=== PATIENT | female | born 1995 ===

== ENCOUNTER 2021-04-09 14:24 | Inpatient (IN) | payer BC ==
[2021-04-09 16:29] LABS: BLOOD UREA NITROGEN,BUN 10 mg/dL (7.0-18.0); CARBON DIOXIDE,CO2 20.2 mmol/L (21.0-32.0); CHLORIDE,CL 106 mmol/L (98-107); GLUCOSE RANDOM 68 mg/dL (74-106); POTASSIUM,K 3.6 mmol/L (3.5-5.1); SODIUM,NA 137 mmol/L (136-145)
[2021-04-09] MEDS ORDERED: Tranexamic Acid 1,000 MG in Sodium Chloride 0.9% 100 ML IV PRN (17:49)
[2021-04-09] MEDS ORDERED: Lidocaine 1% 50 ML MDV INJECT PRN (17:49)
[2021-04-09] MEDS ORDERED: Carboprost Tromethamine 250 MCG/1 ML Amp IM PRN (17:49)
[2021-04-09] MEDS ORDERED: Methylergonovine 0.2 MG/1 ML Amp IM PRN (17:49)
[2021-04-09] MEDS ORDERED: Sodium Chloride 0.9% 2.5 ML Syringe FLUSH PRN (17:49)
[2021-04-09] MEDS ORDERED: Water For Irrigation,Sterile 1,000 ML Container IRR PRN (17:49)
[2021-04-09] MEDS ORDERED: Sodium Chloride 0.9% 10 ML Syringe FLUSH PRN (17:49)
[2021-04-09] MEDS ORDERED: Nalbuphine 10 MG/1 ML Vial IVPUSH PRN (17:49)
[2021-04-09] MEDS ORDERED: Sodium Chloride 0.9% 10 ML SDV IV PRN (17:49)
[2021-04-09] MEDS ORDERED: Misoprostol 200 MCG Tab PO PRN (17:49)
[2021-04-09] MEDS ORDERED: Oxytocin/0.9 % Sodium Chloride 30 UNIT/500 ML BAG IV SCH ×2 (18:00→19:15)
--- NOTE | 2021-04-09 19:10 | PCM.LDHP ---
L&D History of Present Illness - General Date of Service: 04/09/21 Admit Problem/Dx: Patient Status Order with Admit Dx/Problem 04/09/21 14:55 Patient Status [ADT] Routine 04/09/21 17:50 Patient Status [ADT] Routine Admission Diagnosis/Problem Admission Diagnosis/Problem Source of Information: Patient History Limitations: Reports: No Limitations - History of Present Illness Improves with: Reports: None Worsens with: Reports: None Associated Symptoms: Reports: N - Related Data Allergies/Adverse Reactions: Allergies Allergy/AdvReac Type Severity Reaction Status Date / Time No Known Allergies Allergy Verified 03/29/21 10:25 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: Neurological History: Reports: Migraines Psychiatric History: Reports: Anxiety Endocrine/Metabolic History: Reports: Diabetes, Gestational - Past Surgical History Endocrine Surgical History: Reports: None Neurological Surgical History: Reports: None Social & Family History - Family History Family Medical History: No Pertinent Family History - Tobacco Use Tobacco Use Status *Q: Never Tobacco User Second Hand Smoke Exposure: No - Recreational Drug Use Recreational Drug Use: No H&P Review of Systems - Review of Systems: Review Of Systems: See Below General: Reports: No Symptoms HEENT: Reports: No Symptoms Pulmonary: Reports: No Symptoms Cardiovascular: Reports: No Symptoms Gastrointestinal: Reports: No Symptoms Genitourinary: Reports: No Symptoms Musculoskeletal: Reports: No Symptoms Skin: Reports: No Symptoms Psychiatric: Reports: No Symptoms Neurological: Reports: No Symptoms Hematologic/Lymphatic: Reports: No Symptoms Immunologic: Reports: No Symptoms L&D Exam - Exam Exam: See Below - Vital Signs Weight: 86.183 kg - OB Specific Contraction Intensity: Mild Presentation: Vertex - Mcgarry Score Mcgarry Score Cervix Position: Midposition Mcgarry Score Consistency: Firm Mcgarry Score Effacement: 31-50% Mcgarry Score Dilation: Closed Mcgarry Score Infant's Station: -3 Mcgarry Score Total: 2 - Exam General: Alert, Oriented HEENT: PERRLA, Conjunctiva Clear, EACs Clear, EOMI, Hearing Intact, Mucosa Moist & [place], Nares Patent, Normal Nasal Septum, Posterior Pharynx Clear, TMs Clear Neck: Supple, Trachea Midline Lungs: Clear to Auscultation, Normal Respiratory Effort Cardiovascular: Regular Rate, Regular Rhythm GI/Abdominal Exam: Normal Bowel Sounds, Soft, Non-Tender, No Organomegaly, No Distention, No Abnormal Bruit, No Mass, Pelvis Stable Rectal Exam: Normal Exam, Normal Rectal Tone Genitourinary: Normal external exam, Normal bimanual exam, Normal speculum exam Back Exam: Normal Inspection, Full Range of Motion Extremities: Normal Inspection, Normal Range of Motion, Non-Tender, No Pedal Edema, Normal Capillary Refill Skin: Warm, Dry, Intact Neurological: Cranial Nerves Intact, Reflexes Equal Bilateral Psychiatric: Alert, Normal Affect, Normal Mood - Patient Data Lab Results Last 24 hrs: Laboratory Results - last 24 hr 04/09/21 04/09/21 04/09/21 Range/Units 14:30 14:30 15:38 WBC 7.64 (4.0-11.0) K/uL RBC 3.97 L (4.30-5.90) M/uL Hgb 10.2 L (12.0-16.0) g/dL Hct 31.6 L (36.0-46.0) % MCV 79.6 L (80.0-98.0) fL MCH 25.7 L (27.0-32.0) pg MCHC 32.3 (31.0-37.0) g/dL RDW Std Deviation 42.5 (28.0-62.0) fl RDW Coeff of Cesar 15 (11.0-15.0) % Plt Count 190 (150-400) K/uL MPV 10.00 (7.40-12.00) fL Neut % (Auto) 74.4 (48.0-80.0) % Lymph % (Auto) 16.4 (16.0-40.0) % [place] % (Auto) 5.8 (0.0-15.0) % Eos % (Auto) 3.3 (0.0-7.0) % Baso % (Auto) 0.1 (0.0-1.5) % Neut # (Auto) 5.7 (1.4-5.7) K/uL Lymph # (Auto) 1.3 (0.6-2.4) K/uL [place] # (Auto) 0.4 (0.0-0.8) K/uL Eos # (Auto) 0.3 (0.0-0.7) K/uL Baso # (Auto) 0.0 (0.0-0.1) K/uL Nucleated RBC % 0.0 /100WBC Nucleated RBCs # 0 K/uL Sodium (136-145) mmol/L Potassium (3.5-5.1) mmol/L Chloride (98-107) mmol/L Carbon Dioxide (21.0-32.0) mmol/L BUN (7.0-18.0) mg/dL Creatinine (0.6-1.0) mg/dL Est Cr Clr Drug Dosing Estimated GFR (MDRD) ml/min Glucose (74-106) mg/dL Uric Acid (2.6-7.2) mg/dL Calcium (8.5-10.1) mg/dL Total Bilirubin (0.2-1.0) mg/dL AST (15-37) IU/L ALT (14-63) IU/L Alkaline Phosphatase (46-116) U/L Total Protein (6.4-8.2) g/dL Albumin (3.4-5.0) g/dL Globulin (2.6-4.0) g/dL Albumin/Globulin Ratio (0.9-1.6) Urine Color YELLOW Urine Appearance HAZY Urine pH 6.0 (5.0-8.0) Ur Specific [place] >= 1.030 (1.001-1.035) Urine Protein >=300 H (NEGATIVE) mg/dL Urine Glucose (UA) NEGATIVE (NEGATIVE) mg/dL Urine Ketones NEGATIVE (NEGATIVE) mg/dL Urine Occult Blood TRACE-INTACT H (NEGATIVE) Urine Nitrite NEGATIVE (NEGATIVE) Urine Bilirubin NEGATIVE (NEGATIVE) Urine Urobilinogen 1.0 (<2.0) EU/dL Ur Leukocyte Esterase NEGATIVE (NEGATIVE) U Hyaline Cast (Auto) 1-3 (0-2/LPF) Urine RBC 1-3 (0-2/HPF) Urine WBC 2-4 (0-5/HPF) Ur Epithelial Cells MODERATE (NONE-FEW) Urine Bacteria 2+ H (NEGATIVE) Urine Mucus MODERATE (NONE-MOD) Ur Random Creatinine 272.2 mg/dL U Random Total Protein 625.9 H (<11.9) mg/dL Protein/Creatinin Ratio 2.3 /27/21 Range/Units 15:38 WBC (4.0-11.0) K/uL RBC (4.30-5.90) M/uL Hgb (12.0-16.0) g/dL Hct (36.0-46.0) % MCV (80.0-98.0) fL MCH (27.0-32.0) pg MCHC (31.0-37.0) g/dL RDW Std Deviation (28.0-62.0) fl RDW Coeff of Cesar (11.0-15.0) % Plt Count (150-400) K/uL MPV (7.40-12.00) fL Neut % (Auto) (48.0-80.0) % Lymph % (Auto) (16.0-40.0) % [place] % (Auto) (0.0-15.0) % Eos % (Auto) (0.0-7.0) % Baso % (Auto) (0.0-1.5) % Neut # (Auto) (1.4-5.7) K/uL Lymph # (Auto) (0.6-2.4) K/uL [place] # (Auto) (0.0-0.8) K/uL Eos # (Auto) (0.0-0.7) K/uL Baso # (Auto) (0.0-0.1) K/uL Nucleated RBC % /100WBC Nucleated RBCs # K/uL Sodium 137 (136-145) mmol/L Potassium 3.6 (3.5-5.1) mmol/L Chloride 106 (98-107) mmol/L Carbon Dioxide 20.2 L (21.0-32.0) mmol/L BUN 10 (7.0-18.0) mg/dL Creatinine 0.7 (0.6-1.0) mg/dL Est Cr Clr Drug Dosing TNP Estimated GFR (MDRD) > 60.0 ml/min Glucose 68 L (74-106) mg/dL Uric Acid 4.8 (2.6-7.2) mg/dL Calcium 8.3 L (8.5-10.1) mg/dL Total Bilirubin 0.2 (0.2-1.0) mg/dL AST 15 (15-37) IU/L ALT 15 (14-63) IU/L Alkaline Phosphatase 172 H (46-116) U/L Total Protein 6.6 (6.4-8.2) g/dL Albumin 2.4 L (3.4-5.0) g/dL Globulin 4.2 H (2.6-4.0) g/dL Albumin/Globulin Ratio 0.6 L (0.9-1.6) Urine Color Urine Appearance Urine pH (5.0-8.0) Ur Specific [place] (1.001-1.035) Urine Protein (NEGATIVE) mg/dL Urine Glucose (UA) (NEGATIVE) mg/dL Urine Ketones (NEGATIVE) mg/dL Urine Occult Blood (NEGATIVE) Urine Nitrite (NEGATIVE) Urine Bilirubin (NEGATIVE) Urine Urobilinogen (<2.0) EU/dL Ur Leukocyte Esterase (NEGATIVE) U Hyaline Cast (Auto) (0-2/LPF) Urine RBC (0-2/HPF) Urine WBC (0-5/HPF) Ur Epithelial Cells (NONE-FEW) Urine Bacteria (NEGATIVE) Urine Mucus (NONE-MOD) Ur Random Creatinine mg/dL U Random Total Protein (<11.9) mg/dL Protein/Creatinin Ratio Result Diagrams: 04/09/21 15:38 04/09/21 15:38 Problem List Initiated/Reviewed/Updated: Yes Orders Last 24hrs: Active Orders 24 hr Category Date Time Status Patient Status [ADT] Routine ADT 04/09/21 17:50 Active Heart Tones [RC] CONTINUOUS Care 04/09/21 17:50 Active Non Stress Test [RC] PER UNIT ROUTINE Care 04/09/21 14:55 Active May Shower [RC] ASDIRECTED Care 04/09/21 17:50 Active Notify Provider [RC] PRN Care 04/09/21 17:50 Active Up ad Teresa [RC] ASDIRECTED Care 04/09/21 14:55 Active Up ad Teresa [RC] ASDIRECTED Care 04/09/21 17:50 Active Vaginal Exam [RC] Click to Edit Care 04/09/21 14:55 Active Vaginal Exam [RC] PRN Care 04/09/21 17:50 Active Vital Signs [RC] PER UNIT ROUTINE Care 04/09/21 14:55 Active Vital Signs [RC] PER UNIT ROUTINE Care 04/09/21 17:50 Active Regular Diet [DIET] Diet 04/09/21 Dinner Active CORONAVIRUS COVID-19 JOEL [MOLEC] Routine Lab 04/09/21 18:36 Ordered RPR (SYPHILIS SERO) W/ RFLX [REF] Routine Lab 04/09/21 17:50 Ordered TYPE AND SCREEN [BBK] Routine Lab 04/09/21 17:50 Ordered Butorphanol [Stadol] Med 04/09/21 17:49 Active 1 mg IVPUSH Q1H PRN Carboprost Tromethamine [Hemabate DS] Med 04/09/21 17:49 Active 250 mcg IM ASDIRECTED PRN Lactated Ringers [Ringers, Lactated] 1,000 ml Med 04/09/21 18:00 Active IV ASDIRECTED Lidocaine 1% [Xylocaine 1%] Med 04/09/21 17:49 Active 50 ml INJECT ONETIME PRN Methylergonovine [Methergine] Med 04/09/21 17:49 Active 0.2 mg IM ASDIRECTED PRN Nalbuphine [Nubain] Med 04/09/21 17:49 Active 10 mg IVPUSH Q1H PRN Oxytocin/0.9 % Sodium Chloride [Oxytocin 30 Unit/500 ML Med 04/09/21 18:00 Active -NS] 30 unit in 500 ml IV TITRATE Sodium Chloride 0.9% [Normal Saline] Med 04/09/21 17:49 Active 10 ml IV ASDIRECTED PRN Sodium Chloride 0.9% [Saline Flush] Med 04/09/21 17:49 Active 10 ml FLUSH ASDIRECTED PRN Sodium Chloride 0.9% [Saline Flush] Med 04/09/21 17:49 Active 2.5 ml FLUSH ASDIRECTED PRN Tranexamic Acid [Cyklokapron] 1,000 mg Med 04/09/21 17:49 Active Sodium Chloride 0.9% [Normal Saline] 100 ml IV ONETIME Water For Irrigation,Sterile [Sterile Water for Med 04/09/21 17:49 Active Irrigation] 1,000 ml IRR ASDIRECTED PRN miSOPROStoL [Cytotec] Med 04/09/21 17:49 Active 200 mcg PO ONETIME PRN Scalp Electrode [WOMSER] Per Unit Routine Oth 04/09/21 17:50 Ordered Peripheral IV Insertion Adult [OM.PC] Routine Oth 04/09/21 17:50 Ordered Resuscitation Status Routine Resus Stat 04/09/21 14:55 Ordered Medication Orders Butorphanol Tartrate (Butorphanol 1 Mg/Ml Sdv) 1 mg IVPUSH Q1H PRN PRN Reason: Pain (severe 7-10) Carboprost Tromethamine (Carboprost Tromethamine 250 Mcg/1 Ml Amp) 250 mcg IM ASDIRECTED PRN PRN Reason: Post Hemorrhage Lactated Ringer's (Ringers, Lactated) 1,000 mls @ 150 mls/hr IV ASDIRECTED SAVI Oxytocin/Sodium Chloride (Oxytocin 30 Unit/500 Ml-Ns) 30 unit in 500 mls @ 999 mls/hr IV TITRATE SAVI Tranexamic Acid 1,000 mg/ (Sodium Chloride) 110 mls @ 660 mls/hr IV ONETIME PRN PRN Reason: Bleeding Lidocaine HCl (Lidocaine 1% 50 Ml Mdv) 50 ml INJECT ONETIME PRN PRN Reason: Laceration repair Methylergonovine Maleate (Methylergonovine 0.2 Mg/1 Ml Amp) 0.2 mg IM ASDIRECTED PRN PRN Reason: Post Hemorrhage Misoprostol (Misoprostol 200 Mcg Tab) 200 mcg PO ONETIME PRN PRN Reason: Post Hemorrhage Nalbuphine HCl (Nalbuphine 10 Mg/1 Ml Vial) 10 mg IVPUSH Q1H PRN PRN Reason: Pain (severe 7-10) Sodium Chloride (Sodium Chloride 0.9% 10 Ml Syringe) 10 ml FLUSH ASDIRECTED PRN PRN Reason: Keep Vein Open Sodium Chloride (Sodium Chloride 0.9% 2.5 Ml Syringe) 2.5 ml FLUSH ASDIRECTED PRN PRN Reason: Keep Vein Open Sodium Chloride (Sodium Chloride 0.9% 10 Ml Sdv) 10 ml IV ASDIRECTED PRN PRN Reason: IV Use Sterile Water (Water For Irrigation,Sterile 1,000 Ml Container) 1,000 ml IRR ASDIRECTED PRN PRN Reason: delivery Assessment/Plan Comment:: IUP 36+5 [facility] will admit for induction.
[2021-04-09] MEDS ORDERED: Terbutaline 1 MG/ML SDV SUBCUT PRN (19:13)
[2021-04-09] MEDS ORDERED: Misoprostol 25 MCG (1/4 of 100 MCG) Tab VAG PRN ×2 (19:30→23:30)
[2021-04-09] MEDS ORDERED: Misoprostol 25 MCG (1/4 of 100 MCG) Tab PO PRN ×2 (19:30→23:30)
[2021-04-09] MEDS: Lactated Ringers 1,000 ML IV SCH (22:45)
[2021-04-09] MEDS: Butorphanol 1 MG/ML SDV IVPUSH PRN (23:15)
[2021-04-10] MEDS: Butorphanol 1 MG/ML SDV IVPUSH PRN (00:43)
[2021-04-10] MEDS ORDERED: Ropivacaine HCl/PF 200 ML ONE (01:22)
[2021-04-10] MEDS ORDERED: Bupivacaine 0.25% 10 ML SDV ONE (01:22)
[2021-04-10] MEDS: Lactated Ringers 1,000 ML IV SCH (01:23)
--- NOTE | 2021-04-10 01:56 | PCM.PREANE ---
Preanesthetic Assessment - Anesthesia/Transfusion/Family Hx Anesthesia History: No Prior Anesthesia Family History of Anesthesia Reaction: No Transfusion History: No Prior Transfusion(s) - Review of Systems General: No Symptoms Pulmonary: No Symptoms Cardiovascular: No Symptoms Gastrointestinal: No Symptoms Neurological: No Symptoms Other: Reports: None - Physical Assessment NPO Status Date: 04/10/21 NPO Status Time: 00:00 Height: 5 ft 5 in Weight: 190 lb ASA Class: 2 Mental Status: Alert & Oriented x3 Airway Class: Mallampati = 3 Dentition: Reports: Normal Dentition ROM/Head Extension: Full Lungs: Clear to Auscultation, Normal Respiratory Effort Cardiovascular: Regular Rate, Regular Rhythm - Lab Values: Laboratory Last Values WBC 7.64 K/uL (4.0-11.0) 04/09/21 15:38 RBC 3.97 M/uL (4.30-5.90) L 04/09/21 15:38 Hgb 10.2 g/dL (12.0-16.0) L 04/09/21 15:38 Hct 31.6 % (36.0-46.0) L 04/09/21 15:38 MCV 79.6 fL (80.0-98.0) L 04/09/21 15:38 MCH 25.7 pg (27.0-32.0) L 04/09/21 15:38 MCHC 32.3 g/dL (31.0-37.0) 04/09/21 15:38 RDW Std Deviation 42.5 fl (28.0-62.0) 04/09/21 15:38 RDW Coeff of Cesar 15 % (11.0-15.0) 04/09/21 15:38 Plt Count 190 K/uL (150-400) 04/09/21 15:38 MPV 10.00 fL (7.40-12.00) 04/09/21 15:38 Neut % (Auto) 74.4 % (48.0-80.0) 04/09/21 15:38 Lymph % (Auto) 16.4 % (16.0-40.0) 04/09/21 15:38 [place] % (Auto) 5.8 % (0.0-15.0) 04/09/21 15:38 Eos % (Auto) 3.3 % (0.0-7.0) 04/09/21 15:38 Baso % (Auto) 0.1 % (0.0-1.5) 04/09/21 15:38 Neut # (Auto) 5.7 K/uL (1.4-5.7) 04/09/21 15:38 Lymph # (Auto) 1.3 K/uL (0.6-2.4) 04/09/21 15:38 [place] # (Auto) 0.4 K/uL (0.0-0.8) 04/09/21 15:38 Eos # (Auto) 0.3 K/uL (0.0-0.7) 04/09/21 15:38 Baso # (Auto) 0.0 K/uL (0.0-0.1) 04/09/21 15:38 Nucleated RBC % 0.0 /100WBC 04/09/21 15:38 Nucleated RBCs # 0 K/uL 04/09/21 15:38 Sodium 137 mmol/L (136-145) 04/09/21 15:38 Potassium 3.6 mmol/L (3.5-5.1) 04/09/21 15:38 Chloride 106 mmol/L (98-107) 04/09/21 15:38 Carbon Dioxide 20.2 mmol/L (21.0-32.0) L 04/09/21 15:38 BUN 10 mg/dL (7.0-18.0) 04/09/21 15:38 Creatinine 0.7 mg/dL (0.6-1.0) 04/09/21 15:38 Est Cr Clr Drug Dosing TNP 04/09/21 15:38 Estimated GFR (MDRD) > 60.0 ml/min 04/09/21 15:38 Glucose 68 mg/dL (74-106) L 04/09/21 15:38 POC Glucose 63 mg/dL (70-99) L 04/09/21 19:37 Uric Acid 4.8 mg/dL (2.6-7.2) 04/09/21 15:38 Calcium 8.3 mg/dL (8.5-10.1) L 04/09/21 15:38 Total Bilirubin 0.2 mg/dL (0.2-1.0) 04/09/21 15:38 AST 15 IU/L (15-37) 04/09/21 15:38 ALT 15 IU/L (14-63) 04/09/21 15:38 Alkaline Phosphatase 172 U/L (46-116) H 04/09/21 15:38 Total Protein 6.6 g/dL (6.4-8.2) 04/09/21 15:38 Albumin 2.4 g/dL (3.4-5.0) L 04/09/21 15:38 Globulin 4.2 g/dL (2.6-4.0) H 04/09/21 15:38 Albumin/Globulin Ratio 0.6 (0.9-1.6) L 04/09/21 15:38 Urine Color YELLOW 04/09/21 14:30 Urine Appearance HAZY 04/09/21 14:30 Urine pH 6.0 (5.0-8.0) 04/09/21 14:30 Ur Specific [place] >= 1.030 (1.001-1.035) 04/09/21 14:30 Urine Protein >=300 mg/dL (NEGATIVE) H 04/09/21 14:30 Urine Glucose (UA) NEGATIVE mg/dL (NEGATIVE) 04/09/21 14:30 Urine Ketones NEGATIVE mg/dL (NEGATIVE) 04/09/21 14:30 Urine Occult Blood TRACE-INTACT (NEGATIVE) H 04/09/21 14:30 Urine Nitrite NEGATIVE (NEGATIVE) 04/09/21 14:30 Urine Bilirubin NEGATIVE (NEGATIVE) 04/09/21 14:30 Urine Urobilinogen 1.0 EU/dL (<2.0) 04/09/21 14:30 Ur Leukocyte Esterase NEGATIVE (NEGATIVE) 04/09/21 14:30 U Hyaline Cast (Auto) 1-3 (0-2/LPF) 04/09/21 14:30 Urine RBC 1-3 (0-2/HPF) 04/09/21 14:30 Urine WBC 2-4 (0-5/HPF) 04/09/21 14:30 Ur Epithelial Cells MODERATE (NONE-FEW) 04/09/21 14:30 Urine Bacteria 2+ (NEGATIVE) H 04/09/21 14:30 Urine Mucus MODERATE (NONE-MOD) 04/09/21 14:30 Ur Random Creatinine 272.2 mg/dL 04/09/21 14:30 U Random Total Protein 625.9 mg/dL (<11.9) H 04/09/21 14:30 Protein/Creatinin Ratio 2.3 04/09/21 14:30 SARS-CoV-2 RNA (JOEL) NEGATIVE (NEGATIVE) 04/09/21 18:30 Blood Type B POSITIVE 04/09/21 18:15 Antibody Screen NEGATIVE 04/09/21 18:15 - Allergies Allergies/Adverse Reactions: Allergies Allergy/AdvReac Type Severity Reaction Status Date / Time No Known Allergies Allergy Verified 03/29/21 10:25 - Blood Blood Available: Yes Product(s) Available: PRBC - Anesthesia Plan Pre-Op Medication Ordered: None - Acknowledgements Anesthesia Type Planned: Epidural Pt an Appropriate Candidate for the Planned Anesthesia: Yes Alternatives and Risks of Anesthesia Discussed w Pt/Guardian: Yes Pt/Guardian Understands and Agrees with Anesthesia Plan: Yes PreAnesthesia Questionnaire 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: Neurological History: Reports: Migraines Psychiatric History: Reports: Anxiety Endocrine/Metabolic History: Reports: Diabetes, Gestational - Past Surgical History Endocrine Surgical History: Reports: None Neurological Surgical History: Reports: None - SUBSTANCE USE Tobacco Use Status *Q: Never Tobacco User Second Hand Smoke Exposure: No Recreational Drug Use History: No - CURRENT (IN HOUSE) MEDS Current Meds: Current Medications Butorphanol Tartrate (Butorphanol 1 Mg/Ml Sdv) 1 mg IVPUSH Q1H PRN PRN Reason: Pain (severe 7-10) Last Admin: 04/10/21 00:43 Dose: 1 mg Documented by: Carboprost Tromethamine (Carboprost Tromethamine 250 Mcg/1 Ml Amp) 250 mcg IM ASDIRECTED PRN PRN Reason: Post Hemorrhage Lactated Ringer's (Ringers, Lactated) 1,000 mls @ 150 mls/hr IV ASDIRECTED SAVI Last Infusion: 04/10/21 01:42 Dose: 150 mls/hr Documented by: Oxytocin/Sodium Chloride (Oxytocin 30 Unit/500 Ml-Ns) 30 unit in 500 mls @ 999 mls/hr IV TITRATE SAVI Tranexamic Acid 1,000 mg/ (Sodium Chloride) 110 mls @ 660 mls/hr IV ONETIME PRN PRN Reason: Bleeding Oxytocin/Sodium Chloride (Oxytocin 30 Unit/500 Ml-Ns) 30 unit in 500 mls @ 2 mls/hr IV TITRATE SAVI; Protocol Lidocaine HCl (Lidocaine 1% 50 Ml Mdv) 50 ml INJECT ONETIME PRN PRN Reason: Laceration repair Methylergonovine Maleate (Methylergonovine 0.2 Mg/1 Ml Amp) 0.2 mg IM ASDIRECTED PRN PRN Reason: Post Hemorrhage Misoprostol (Misoprostol 200 Mcg Tab) 200 mcg PO ONETIME PRN PRN Reason: Post Hemorrhage Misoprostol (Misoprostol 25 Mcg (1/4 Of 100 Mcg) Tab) 25 mcg VAG ONETIME PRN PRN Reason: Cervical Ripening Last Admin: 04/09/21 19:50 Dose: 25 mcg Documented by: Misoprostol (Misoprostol 25 Mcg (1/4 Of 100 Mcg) Tab) 25 mcg VAG Q4H PRN PRN Reason: Cervical Ripening Last Admin: 04/09/21 23:55 Dose: 25 mcg Documented by: Misoprostol (Misoprostol 25 Mcg (1/4 Of 100 Mcg) Tab) 25 mcg PO ONETIME PRN PRN Reason: Cervical Ripening Last Admin: 04/09/21 19:48 Dose: 25 mcg Documented by: Misoprostol (Misoprostol 25 Mcg (1/4 Of 100 Mcg) Tab) 25 mcg PO Q4H PRN PRN Reason: Cervical Ripening Last Admin: 04/09/21 23:55 Dose: 25 mcg Documented by: Nalbuphine HCl (Nalbuphine 10 Mg/1 Ml Vial) 10 mg IVPUSH Q1H PRN PRN Reason: Pain (severe 7-10) Sodium Chloride (Sodium Chloride 0.9% 10 Ml Syringe) 10 ml FLUSH ASDIRECTED PRN PRN Reason: Keep Vein Open Sodium Chloride (Sodium Chloride 0.9% 2.5 Ml Syringe) 2.5 ml FLUSH ASDIRECTED PRN PRN Reason: Keep Vein Open Sodium Chloride (Sodium Chloride 0.9% 10 Ml Sdv) 10 ml IV ASDIRECTED PRN PRN Reason: IV Use Sterile Water (Water For Irrigation,Sterile 1,000 Ml Container) 1,000 ml IRR ASDIRECTED PRN PRN Reason: delivery Terbutaline Sulfate (Terbutaline 1 Mg/Ml Sdv) 0.25 mg SUBCUT ASDIRECTED PRN PRN Reason: Tacysystole Discontinued Medications Bupivacaine HCl (Bupivacaine 0.25% 10 Ml Sdv) Confirm Administered Dose 10 ml .ROUTE .STK-MED ONE Stop: 04/10/21 01:23 Ropivacaine (Naropin 0.2%) Confirm Administered Dose 200 mls @ as directed .ROUTE .STK-MED ONE Stop: 04/10/21 01:23 - Pre-Procedure Checklist Attending Provider Aware: Yes Chart Reviewed: Yes Consent Signed: Yes Labs Reviewed: Yes VS/FHR Reviewed: Yes Patient Identification Confirmation Method: Reports: Verbal Patient Pt an Appropriate Candidate for the Planned Anesthesia: Yes Alternatives and Risks of Anesthesia Discussed w Pt/Guardian: Yes - Procedure Procedure Start Date: 04/10/21 Procedure Start Time: 01:[address]: Reports: Blood Pressure, Heart Rate, SPO2 Functional IV: Yes Safety Measures: Reports: Patient Identified, Procedure Verified, Site Verified, Procedure Time Out Patient Position: Reports: Sitting Prep: Reports: Betadine x3, Sterile Drape Local Anesthetic: Reports: Intradermal Wheal w Lidocaine 1% Regional Placement Level: Reports: L3-4 Needle: Reports: 17 g Touhy Approach: Reports: Midline Technique: Reports: AGUILA Plastic Syringe Parasthesia: Reports: None Fluid Obtained: Reports: None Test Dose Time: 01:32 Test Dose Medication: Reports: Lidocaine 1.5% w Epinephrine 1:200,000 Test Dose Response: Reports: Negative Loading Dose Time: 01:32 Loading Dose Medication: bupivicaine 0.25% 10cc Loading Dose Patient Position: sitting Continuous Infusion Start Time: 01:35 Continuous Infusion Medication: ropivicaine Continuous Infusion Rate: 16 Continuous Infusion PCS Bolus Option: 4 Continuous Infusion Lockout Dose (cc/hr): 28 Patient Position Post Placement: Reports: [place]pline/YORDAN VS and FHR Monitored in Unit Post Placement: Yes Procedure End Date: 04/10/21 Procedure End Time: 02:21
[2021-04-10] MEDS ORDERED: Lanolin 100% Cream 7 GM Tube TOP PRN ×2 (02:55→08:59)
[2021-04-10] MEDS ORDERED: Ibuprofen 400 MG Tab PO PRN ×2 (02:55→08:59)
[2021-04-10] MEDS ORDERED: Bisacodyl 10 MG Supp RECTAL PRN ×2 (02:55→08:59)
[2021-04-10] MEDS ORDERED: Docusate Sodium 100 MG Cap PO PRN ×2 (02:55→08:59)
[2021-04-10] MEDS ORDERED: oxyCODONE 5 MG Tab PO PRN (02:55)
[2021-04-10] MEDS ORDERED: Witch Hazel Medicated Pads 40/Jar TOP PRN ×2 (02:55→08:59)
[2021-04-10] MEDS ORDERED: Acetaminophen 500 MG Tab PO PRN ×4 (02:55→08:59)
[2021-04-10] MEDS ORDERED: Benzocaine/Menthol 20%-0.5% Spray 78 GM Cannister TOP PRN ×2 (02:55→08:59)
[2021-04-10] MEDS: Ibuprofen 800 MG Tab PO PRN (04:23)
[2021-04-10] MEDS ORDERED: Ibuprofen 800 MG Tab PO PRN (08:59)
[2021-04-10] MEDS ORDERED: diphenhydrAMINE 50 MG Cap PO ONE (09:03)
[2021-04-10] MEDS ORDERED: diphenhydrAMINE 50 MG Cap PO PRN (09:10)
[2021-04-11] MEDS: Ibuprofen 800 MG Tab PO PRN ×2 (00:14→08:45)
[2021-04-11 07:31] LABS: BILIRUBIN INDIRECT 0.15001
--- NOTE | 2021-04-11 08:56 | PCM.DCSUM1 ---
Discharge Summary - Hospital Course Free Text/Narrative:: Discharge home with baby. Per Dr. Roldan, follow up next week in the clinic to assess rash status. Follow up in the clinic in six weeks for routine visit. Diagnosis: Stroke: No Modified Baldwin Scale: No Symptoms at All Modified Baldwin Scale Score: 0 - Discharge Data Discharge Date: 04/11/21 Discharge Disposition: Home, Self-Care 01 Condition: Good - Referral to Home Health Primary Care Physician: He Obrien MD - Patient Instructions Diet: Usual Diet as Tolerated, Regular Diet as Tolerated, Drink 8-10+ Glasses/Day Activity: As Tolerated, No Strenuous Activities, Rest and Relax Today Driving: May Drive Today Showering/Bathing: May Shower Notify Provider of: Fever, Increased Pain, Swelling and Redness, Drainage, Nausea and/or Vomiting - Discharge Plan *PRESCRIPTION DRUG MONITORING PROGRAM REVIEWED*: Not Applicable *COPY OF PRESCRIPTION DRUG MONITORING REPORT IN PATIENT KISHAN: Not Applicable Prescriptions/Med Rec: Ibuprofen [Motrin] 800 mg PO Q6H PRN #60 tablet PRN Reason: Pain (Mild 1-3) Home Medications: Home Meds Ibuprofen [Motrin] 800 mg PO Q6H PRN #60 tablet 04/11/21 [Rx] Oxygen Therapy Mode: Room Air Patient Handouts: Care After Vaginal Delivery Referrals: Ricky Wilson [Ordering Only Provider] - Kristen Lazo MD [Physician] - 05/22/21 1:00 pm - Discharge Summary/Plan Comment DC Time >30 min.: Yes - General Info Date of Service: 04/11/21 Admission Dx/Problem (Free Text: Patient Status Order with Admit Dx/Problem 04/09/21 14:55 Patient Status [ADT] Routine 04/09/21 17:50 Patient Status [ADT] Routine Admission Diagnosis/Problem Admission Diagnosis/Problem Functional Status: Reports: Pain Controlled, Tolerating Diet, Ambulating, Ur inating - Review of Systems General: Reports: No Symptoms HEENT: Reports: No Symptoms Pulmonary: Reports: No Symptoms Cardiovascular: Reports: No Symptoms Gastrointestinal: Reports: No Symptoms Genitourinary: Reports: No Symptoms Musculoskeletal: Reports: No Symptoms Skin: Reports: Pruritis, Rash Neurological: Reports: No Symptoms Psychiatric: Reports: No Symptoms - Patient Data Vitals - Most Recent: Last Vital Signs Temp 97.5 F 04/11/21 08:00 Pulse 76 04/11/21 08:00 Resp 18 04/11/21 08:00 BP 139/90 04/11/21 08:00 Pulse Ox 98 04/11/21 08:00 Weight - Most Recent: 190 lb Lab Results - Last 24 hrs: Laboratory Results - last 24 hr 04/09/21 04/11/21 04/11/21 Range/Units 18:15 06:18 06:18 Hgb 10.2 L (12.0-16.0) g/dL Hct 31.7 L (36.0-46.0) % Fasting Glucose (74-106) mg/dL Total Bilirubin 0.2 (0.2-1.0) mg/dL Direct Bilirubin < 0.05 (0.0-0.5) mg/dL Indirect Bilirubin 0.31346 AST 19 (15-37) IU/L ALT 21 (14-63) IU/L Alkaline Phosphatase 154 H (46-116) U/L Total Protein 5.6 L (6.4-8.2) g/dL Albumin 2.3 L (3.4-5.0) g/dL Globulin 3.3 (2.6-4.0) g/dL Albumin/Globulin Ratio 0.7 L (0.9-1.6) Antibody Screen NEGATIVE 04/11/21 Range/Units 06:18 Hgb (12.0-16.0) g/dL Hct (36.0-46.0) % Fasting Glucose 69 L (74-106) mg/dL Total Bilirubin (0.2-1.0) mg/dL Direct Bilirubin (0.0-0.5) mg/dL Indirect Bilirubin AST (15-37) IU/L ALT (14-63) IU/L Alkaline Phosphatase (46-116) U/L Total Protein (6.4-8.2) g/dL Albumin (3.4-5.0) g/dL Globulin (2.6-4.0) g/dL Albumin/Globulin Ratio (0.9-1.6) Antibody Screen Med Orders - Current: Current Medications Acetaminophen (Acetaminophen 500 Mg Tab) 500 mg PO Q4H PRN PRN Reason: Pain (mild 1-3) Acetaminophen (Acetaminophen 500 Mg Tab) 1,000 mg PO Q4H PRN PRN Reason: Pain (mild 1-3) Acetaminophen (Acetaminophen 500 Mg Tab) 500 mg PO Q4H PRN PRN Reason: Pain (mild 1-3) Acetaminophen (Acetaminophen 500 Mg Tab) 1,000 mg PO Q4H PRN PRN Reason: Pain (mild 1-3) Benzocaine/Menthol (Benzocaine/Menthol 20%-0.5% Irwin 78 Gm Cannister) 78 gm TOP ASDIRECTED PRN PRN Reason: Perineal Comfort Measure Last Admin: 04/10/21 04:29 Dose: 1 canister Documented by: Benzocaine/Menthol (Benzocaine/Menthol 20%-0.5% Irwin 78 Gm Cannister) 78 gm TOP ASDIRECTED PRN PRN Reason: Perineal Comfort Measure Bisacodyl (Bisacodyl 10 Mg Supp) 10 mg RECTAL ONETIME PRN PRN Reason: Constipation Bisacodyl (Bisacodyl 10 Mg Supp) 10 mg RECTAL ONETIME PRN PRN Reason: Constipation Butorphanol Tartrate (Butorphanol 1 Mg/Ml Sdv) 1 mg IVPUSH Q1H PRN PRN Reason: Pain (severe 7-10) Last Admin: 04/10/21 00:43 Dose: 1 mg Documented by: Carboprost Tromethamine (Carboprost Tromethamine 250 Mcg/1 Ml Amp) 250 mcg IM ASDIRECTED PRN PRN Reason: Post Hemorrhage Diphenhydramine HCl (Diphenhydramine 50 Mg Cap) 50 mg PO Q8H PRN PRN Reason: Itching Last Admin: 04/10/21 19:07 Dose: 50 mg Documented by: Docusate Sodium (Docusate Sodium 100 Mg Cap) 100 mg PO Q12H PRN PRN Reason: Constipation Last Admin: 04/11/21 08:45 Dose: 100 mg Documented by: Docusate Sodium (Docusate Sodium 100 Mg Cap) 100 mg PO Q12H PRN PRN Reason: Constipation Emollient Ointment (Lanolin 100% Cream 7 Gm Tube) 0 gm TOP ASDIRECTED PRN PRN Reason: Sore Nipples Last Admin: 04/10/21 04:28 Dose: 7 g Documented by: Emollient Ointment (Lanolin 100% Cream 7 Gm Tube) 0 gm TOP ASDIRECTED PRN PRN Reason: Sore Nipples Hydroxyzine Pamoate (Hydroxyzine Pamoate 25 Mg Cap) 50 mg PO ONETIME ONE Stop: 04/11/21 09:01 Last Admin: 04/11/21 08:46 Dose: 50 mg Documented by: Lactated Ringer's (Ringers, Lactated) 1,000 mls @ 150 mls/hr IV ASDIRECTED SAVI Last Infusion: 04/10/21 01:42 Dose: 150 mls/hr Documented by: Oxytocin/Sodium Chloride (Oxytocin 30 Unit/500 Ml-Ns) 30 unit in 500 mls @ 999 mls/hr IV TITRATE SAVI Last Infusion: 04/10/21 03:06 Dose: 250 mls/hr Documented by: Tranexamic Acid 1,000 mg/ (Sodium Chloride) 110 mls @ 660 mls/hr IV ONETIME PRN PRN Reason: Bleeding Oxytocin/Sodium Chloride (Oxytocin 30 Unit/500 Ml-Ns) 30 unit in 500 mls @ 2 mls/hr IV TITRATE [facility]; Protocol Ibuprofen (Ibuprofen 400 Mg Tab) 400 mg PO Q4H PRN PRN Reason: Pain (mild 1-3) Ibuprofen (Ibuprofen 800 Mg Tab) 800 mg PO Q6H PRN PRN Reason: Pain (mild 1-3) Last Admin: 04/11/21 08:45 Dose: 800 mg Documented by: Ibuprofen (Ibuprofen 400 Mg Tab) 400 mg PO Q4H PRN PRN Reason: Pain (mild 1-3) Ibuprofen (Ibuprofen 800 Mg Tab) 800 mg PO Q6H PRN PRN Reason: Pain (mild 1-3) Lidocaine HCl (Lidocaine 1% 50 Ml Mdv) 50 ml INJECT ONETIME PRN PRN Reason: Laceration repair Methylergonovine Maleate (Methylergonovine 0.2 Mg/1 Ml Amp) 0.2 mg IM ASDIRECTED PRN PRN Reason: Post Hemorrhage Misoprostol (Misoprostol 200 Mcg Tab) 200 mcg PO ONETIME PRN PRN Reason: Post Hemorrhage Misoprostol (Misoprostol 25 Mcg (1/4 Of 100 Mcg) Tab) 25 mcg VAG ONETIME PRN PRN Reason: Cervical Ripening Last Admin: 04/09/21 19:50 Dose: 25 mcg Documented by: Misoprostol (Misoprostol 25 Mcg (1/4 Of 100 Mcg) Tab) 25 mcg VAG Q4H PRN PRN Reason: Cervical Ripening Last Admin: 04/09/21 23:55 Dose: 25 mcg Documented by: Misoprostol (Misoprostol 25 Mcg (1/4 Of 100 Mcg) Tab) 25 mcg PO ONETIME PRN PRN Reason: Cervical Ripening Last Admin: 04/09/21 19:48 Dose: 25 mcg Documented by: Misoprostol (Misoprostol 25 Mcg (1/4 Of 100 Mcg) Tab) 25 mcg PO Q4H PRN PRN Reason: Cervical Ripening Last Admin: 04/09/21 23:55 Dose: 25 mcg Documented by: Nalbuphine HCl (Nalbuphine 10 Mg/1 Ml Vial) 10 mg IVPUSH Q1H PRN PRN Reason: Pain (severe 7-10) Oxycodone HCl (Oxycodone 5 Mg Tab) 5 mg PO Q2H PRN PRN Reason: Pain (severe 7-10) Sodium Chloride (Sodium Chloride 0.9% 10 Ml Syringe) 10 ml FLUSH ASDIRECTED PRN PRN Reason: Keep Vein Open Sodium Chloride (Sodium Chloride 0.9% 2.5 Ml Syringe) 2.5 ml FLUSH ASDIRECTED PRN PRN Reason: Keep Vein Open Sodium Chloride (Sodium Chloride 0.9% 10 Ml Sdv) 10 ml IV ASDIRECTED PRN PRN Reason: IV Use Sterile Water (Water For Irrigation,Sterile 1,000 Ml Container) 1,000 ml IRR ASDIRECTED PRN PRN Reason: delivery Terbutaline Sulfate (Terbutaline 1 Mg/Ml Sdv) 0.25 mg SUBCUT ASDIRECTED PRN PRN Reason: Tacysystole Carla Davis (Carla Susan Medicated Pads 40/Jar) 1 pad TOP ASDIRECTED PRN PRN Reason: comfort care Last Admin: 04/10/21 04:29 Dose: 1 tub Documented by: Carla Davis (Witch Susan Medicated Pads 40/Jar) 1 pad TOP ASDIRECTED PRN PRN Reason: comfort care Discontinued Medications Bupivacaine HCl (Bupivacaine 0.25% 10 Ml Sdv) Confirm Administered Dose 10 ml .ROUTE .STK-MED ONE Stop: 04/10/21 01:23 Last Admin: 04/10/21 22:40 Dose: Not Given Documented by: Diphenhydramine HCl (Diphenhydramine 50 Mg Cap) 50 mg PO ONETIME ONE Stop: 04/10/21 09:04 Last Admin: 04/10/21 19:08 Dose: Not Given Documented by: Ropivacaine (Naropin 0.2%) Confirm Administered Dose 200 mls @ as directed .ROUTE .STK-MED ONE Stop: 04/10/21 01:23 Last Admin: 04/10/21 22:40 Dose: Not Given Documented by: - Exam General: Reports: Alert, Oriented, Cooperative, No Acute Distress Lungs: Reports: Normal Respiratory Effort Cardiovascular: Reports: Regular Rate, Regular Rhythm GI/Abdominal Exam: Soft, Non-Tender (Female) Exam: Deferred Rectal (Female) Exam: Deferred Back Exam: Reports: Normal Inspection, Full Range of Motion Extremities: Normal Inspection, Normal Range of Motion, Non-Tender, Normal Capillary Refill Skin: Reports: Rash Neurological: Reports: No New Focal Deficit, Normal Speech, Normal Tone, Sensation Intact Psy/Mental Status: Reports: Alert, Normal Affect, Normal Mood
[2021-04-11] MEDS ORDERED: hydrOXYzine Pamoate 25 MG Cap PO ONE (09:00)
--- NOTE | 2021-04-11 12:47 | OR ---
SURGEON: He Obrien MD DATE OF PROCEDURE: 04/10/2021 DELIVERY NOTE: Ms. Han is a 26-year-old primigravida. She is 36 plus 6 weeks. She is followed in our office jointly by all of us. The patient is having issue with high blood pressures. She came to Labor and Delivery last night complaining of mild headache. However, her blood pressure was ranging between 156/107 to 146/101. She had no edema and no swelling. However, the patient is consistently monitoring her blood pressure at home and it was elevated over the last week, and after consultation with the patient and explaining the risk for her and the benefit, we elected to admit her for induction and she was admitted and she was induced with Cytotec. She required 3 doses of Cytotec and she had spontaneous rupture of the membrane at 7 cm. She had epidural anesthesia for labor analgesia and then she had variable deceleration with her contraction, when she pushed, and then the patient after that was able to accomplish normal spontaneous vaginal delivery of a female fetus. The exterior designer and respiratory therapist were in attendance at the delivery. The fetus cried immediately, and score and the weight is not available at this time. The placenta delivered spontaneous, complete, and intact. There was 1 nuchal cord and estimated blood loss was 300 to 350 mL. There was no complication in the labor and delivery process of this patient. GENE / ALLIE /[id number]
== END 2021-04-11 14:30 | disposition home or self-care (01) | DRG 560 ==
LOC: MW.OBCHECK 14:24 → MW.OB 14:26 → MW.OBCHECK 17:50 → OBSVTOIN 04-10 02:47 → MW.OB 04-10 09:09
PROVIDERS: ADMIT Obstetrics & Gynecology; ATTEND Obstetrics & Gynecology
PROC: 10E0XZZ Delivery of Products of Conception, External Approach (ICD-10-PCS; principal; 2021-04-10)
PROC: 3E0P7VZ Introduction of Hormone into Female Reproductive, Via Natural or Artificial Opening (ICD-10-PCS; 2021-04-10)
PROC: 3E0R3BZ Introduction of Anesthetic Agent into Spinal Canal, Percutaneous Approach (ICD-10-PCS; 2021-04-10)
DX: O13.4 Gestational [pregnancy-induced] hypertension without significant proteinuria, complicating childbirth (principal); Z37.0 Single live birth; O24.429 Gestational diabetes mellitus in childbirth, unspecified control; O60.14X0 Preterm labor third trimester with preterm delivery third trimester, not applicable or unspecified; O76 Abnormality in fetal heart rate and rhythm complicating labor and delivery; Z3A.36 36 weeks gestation of pregnancy; Z20.822 Contact with and (suspected) exposure to COVID-19
CPT/HCPCS: 36415; 51702; 80053; 80076; 81001; 82570; 82947; 84156; 84550; 85014; 85018; 85025; 86592; 86593; 86780; 86850; 86900; 86901; A9270-GY; J0595; J2590; J2795; J3490; J7120; U0002